=== PATIENT | female | born 1960 | race Caucasian/White ===

== ENCOUNTER 2017-04-19 08:15 | Inpatient (IN) | payer OTHER ==
[2017-04-19] VITALS (10 sets, daily range): BP systolic 106–137; BP diastolic 40–98; PULSE 61–77; TEMP 98–98.1
[~2017-04-19] VITALS: Ht 170.2 cm; Wt 122.0 kg
[2017-04-19 09:08] LABS: HEMATOCRIT 37.2 % (37.0-47.0); HEMOGLOBIN 12.2 g/dl (12.5-16.0); MEAN CELL VOLUME 88 fl (80.0-100.0); MEAN CORPUSCULAR HEMOGLOBIN 29 pg (27.0-31.0); MEAN CORPUSCULAR HGB CONC 33 g/dl (33.0-37.0); MEAN PLATELET VOLUME 9.4 fl (7.4-10.4); PLATELET COUNT 268 K/mm3 (130-400); RED BLOOD COUNT 4.25 M/mm3 (4.10-5.30); REDCELL DISTRIBUTION WIDTH-CV 12.7 % (11.5-14.5); WHITE BLOOD COUNT 8.5 K/mm3 (4.8-10.8)
[2017-04-19 09:19] LABS: ADD PATHOLOGY DIFF REVIEW NO
[2017-04-19] MEDS ORDERED: NORCO 325 MG-51 TAB PO (09:26)
[2017-04-19 09:35] LABS: CALCIUM 9.1 mg/dL (8.4-10.2); CREATININE, serum 0.84 mg/dL (0.52-1.25); POTASSIUM 3.8 mmol/L (3.4-5.0); URIC ACID 7.2 mg/dL (2.5-6.2)
[2017-04-19 09:45] LABS: ERYTHROCYTE SEDIMENTATION RATE 47 mm/hr (0-30)
[2017-04-19 10:19] LABS: BAND 48 % (0-10); METAMYELOCYTE 1 % (0-0); MYELOCYTE 1 % (0-0); NEUTROPHILS 21 % (42.0-75.2); TOTAL CELLS COUNTED 100
[2017-04-19 10:20] LABS: PLATELET ESTIMATE NORMAL (NORMAL)
[2017-04-19 10:42] LABS: C-REACTIVE PROTEIN 24.1 mg/dL (0.0-0.9)
[2017-04-19 16:04] LABS: SYNOVIAL FL. POLYMORPHONUCLEAR 86.5 % (0-25); SYNOVIAL FLUID APPEARANCE CLOUDY; SYNOVIAL FLUID COLOR PINK; SYNOVIAL FLUID WBC 96873 /mm3 (200-600)
[2017-04-19 16:05] LABS: SYNOVIAL FL. MONONUCLEAR 13.5 % (0-75)
[2017-04-19 17:41] LABS: PH 5 (5-8); URINE APPEARANCE Hazy; URINE BACTERIA None Seen /hpf; URINE BILIRUBIN Negative (NEGATIVE); URINE BLOOD Negative (NEGATIVE); URINE COLOR Amber; URINE GLUCOSE Negative (NEGATIVE); URINE KETONE Trace (NEGATIVE); URINE UROBILINOGEN Negative (NEGATIVE)
[2017-04-20] VITALS (7 sets, daily range): BP systolic 97–147; BP diastolic 43–73; PULSE 62–80; TEMP 98.2–98.9
[2017-04-20 05:23] LABS: HEMATOCRIT 34.3 % (37.0-47.0); HEMOGLOBIN 11.2 g/dl (12.5-16.0)
[2017-04-20 10:20] LABS: SYN APPEARANCE Cloudy (()); SYN COLOR Amber (())
[2017-04-20 10:28] LABS: BASO % 0.3 % (0.0-2.0); GRAN # 10.6 (1.4-6.5); GRAN % 80.9 % (42.2-75.2); LYMPH # 1.8 (1.2-3.4); LYMPH % 13.4 % (20.0-51.0); MEAN CELL VOLUME 87 fl (80.0-100.0); MEAN CORPUSCULAR HGB CONC 33 g/dl (33.0-37.0); MEAN PLATELET VOLUME 9.8 fl (7.4-10.4); MONO # 0.6 (0.1-0.6); MONO % 4.7 % (1.7-9.3); PLATELET COUNT 323 K/mm3 (130-400); RED BLOOD COUNT 4.17 M/mm3 (4.10-5.30); REDCELL DISTRIBUTION WIDTH-CV 12.8 % (11.5-14.5); WHITE BLOOD COUNT 13.1 K/mm3 (4.8-10.8)
[2017-04-20 10:29] LABS: HEMATOCRIT 36.3 % (37.0-47.0); HEMOGLOBIN 11.9 g/dl (12.5-16.0); MEAN CORPUSCULAR HEMOGLOBIN 29 pg (27.0-31.0)
[2017-04-20 10:38] LABS: CALCIUM 8.9 mg/dL (8.4-10.2); CREATININE, serum 0.81 mg/dL (0.52-1.25); POTASSIUM 3.9 mmol/L (3.4-5.0)
[2017-04-21 05:27] VITALS: BP 115/53; PULSE 70; TEMP 97.4
[2017-04-21 09:01] VITALS: BP 135/62; PULSE 69; TEMP 98.3
[2017-04-21 09:50] LABS: MEAN CELL VOLUME 88 fl (80.0-100.0); MEAN CORPUSCULAR HGB CONC 33 g/dl (33.0-37.0); MEAN PLATELET VOLUME 9.8 fl (7.4-10.4); PLATELET COUNT 321 K/mm3 (130-400); RED BLOOD COUNT 3.89 M/mm3 (4.10-5.30); REDCELL DISTRIBUTION WIDTH-CV 12.9 % (11.5-14.5); WHITE BLOOD COUNT 10.1 K/mm3 (4.8-10.8)
[2017-04-21 09:54] LABS: HEMATOCRIT 34.2 % (37.0-47.0); HEMOGLOBIN 11.1 g/dl (12.5-16.0); MEAN CORPUSCULAR HEMOGLOBIN 29 pg (27.0-31.0)
[2017-04-21 10:22] LABS: ERYTHROCYTE SEDIMENTATION RATE 71 mm/hr (0-30)
[2017-04-21 14:16] VITALS: BP 142/53; PULSE 81; TEMP 98
[2017-04-21 17:37] VITALS: BP 125/47; PULSE 72; TEMP 98
[2017-04-21 21:10] VITALS: BP 124/56; PULSE 77; TEMP 98.7
[2017-04-22 05:42] VITALS: BP 131/74; PULSE 74; TEMP 98.2
[2017-04-22 10:17] VITALS: BP 116/57; PULSE 74; TEMP 98.9
[2017-04-22 11:53] LABS: SYPHILIS AB IGG Negative (Negative)
[2017-04-22 13:25] VITALS: BP 136/78; PULSE 75; TEMP 98.7
[2017-04-22 22:00] VITALS: BP 150/63; PULSE 78; TEMP 99.1
[2017-04-23 05:08] VITALS: BP 159/72; PULSE 66; TEMP 99.2
[2017-04-23 10:07] VITALS: BP 152/67; PULSE 72; TEMP 98.2
[2017-04-23 13:43] VITALS: BP 153/78; PULSE 72; TEMP 98.3
[2017-04-23 16:08] VITALS: BP 147/69; PULSE 70; TEMP 98.6
[2017-04-23 21:53] VITALS: BP 147/58; PULSE 74; TEMP 98.8
[2017-04-24 06:19] VITALS: BP 152/65; PULSE 67; TEMP 98.1
[2017-04-24 10:30] VITALS: BP 132/54; PULSE 68; TEMP 98.4
[2017-04-24 13:09] VITALS: BP 124/54; PULSE 67; TEMP 98.3
[2017-04-24 16:11] VITALS: BP 124/65; PULSE 66; TEMP 98.3
[2017-04-24 22:33] VITALS: BP 138/64; PULSE 66; TEMP 98.5
[2017-04-25 06:13] VITALS: BP 137/69; PULSE 81; TEMP 98.4
[2017-04-25 07:12] LABS: ADD PATHOLOGY DIFF REVIEW NO
[2017-04-25 07:19] LABS: MEAN CELL VOLUME 90 fl (80.0-100.0); MEAN CORPUSCULAR HGB CONC 32 g/dl (33.0-37.0); MEAN PLATELET VOLUME 9.4 fl (7.4-10.4); PLATELET COUNT 342 K/mm3 (130-400); RED BLOOD COUNT 3.59 M/mm3 (4.10-5.30); REDCELL DISTRIBUTION WIDTH-CV 12.7 % (11.5-14.5); WHITE BLOOD COUNT 9.8 K/mm3 (4.8-10.8)
[2017-04-25 07:27] LABS: HEMATOCRIT 32.4 % (37.0-47.0); HEMOGLOBIN 10.2 g/dl (12.5-16.0); MEAN CORPUSCULAR HEMOGLOBIN 28 pg (27.0-31.0)
[2017-04-25 08:09] LABS: BAND 8 % (0-10); BASOPHIL 1 % (0-2); NEUTROPHILS 68 % (42.0-75.2); PLATELET ESTIMATE NORMAL (NORMAL); TOTAL CELLS COUNTED 100
[2017-04-25 09:04] VITALS: BP 141/60; PULSE 65; TEMP 97.5
[2017-04-25] MEDS ORDERED: ROCEPHIN 2GM VIAL21 IV (09:12)
[2017-04-25] MEDS ORDERED: HEPARIN LOCK FLU5 M1 IV (09:14)
[2017-04-25] MEDS ORDERED: SYNTHROID0.05 MG/TA PO (09:17)
[2017-04-25] MEDS ORDERED: NS INT FLUSH 1010 ML IV (10:08)
[2017-04-25] MEDS ORDERED: NORCO 325 MG-7.1 TAB PO (10:08)
[2017-04-25 13:32] VITALS: BP 137/47; PULSE 69; TEMP 98.1
[2017-04-25] MEDS ORDERED: DOXYCYCLINE 10100 MG PO (14:45)
[2017-04-25 18:15] VITALS: BP 158/64; PULSE 88; TEMP 98.4
== END 2017-04-25 20:44 | disposition home or self-care (01) | DRG 501 ==
LOC: COL.ER 08:15 → SURG 15:10
PROVIDERS: Internal Medicine Cardiovascular Disease; Internal Medicine Infectious Disease; Nurse Practitioner; Orthopaedic Surgery; Physician Assistant
PROC: 0S9C3ZX Drainage of Right Knee Joint, Percutaneous Approach, Diagnostic (ICD-10-PCS; 2017-04-19)
PROC: 0MDN4ZZ Extraction of Right Knee Bursa and Ligament, Percutaneous Endoscopic Approach (ICD-10-PCS; principal; 2017-04-19 18:30)
DX: M00.9 Pyogenic arthritis, unspecified (principal); Z68.41 Body mass index [BMI] 40.0-44.9, adult; E66.01 Morbid (severe) obesity due to excess calories; Z85.3 Personal history of malignant neoplasm of breast; M25.461 Effusion, right knee; I34.0 Nonrheumatic mitral (valve) insufficiency; M65.9 Synovitis and tenosynovitis, unspecified
CPT/HCPCS: 86780; 99223-AI; 99231-AI; 99233-AI; A9284; C1751; C1894; J0171; J0690; J0696; J1170; J1644; J1650; J1885; J2405; J2704; J2765; J3010; J3370; J7030; J7040; J7042; J7050

== ENCOUNTER → 2017-05-02 | Outpatient (REF) ==
[~2017-05-02] MED LIST: DOXYCYCLINE 10100 MG PO; HEPARIN LOCK FLU5 M1 IV; NORCO 325 MG-51 TAB PO; NORCO 325 MG-7.1 TAB PO; NS INT FLUSH 1010 ML IV; ROCEPHIN 2GM VIAL21 IV; SYNTHROID0.05 MG/TA PO
== END ==
LOC: ZAIV 04-28 06:00
DX: Z02.89 Encounter for other administrative examinations (principal)

== ENCOUNTER → 2017-05-06 | Outpatient (REF) | LOC: ZLAB.WCH 18:07 | DX: Z01.89 Encounter for other specified special examinations (principal) ==

== ENCOUNTER → 2017-05-12 | Outpatient (REF) | LOC: ZLAB.WCH 14:30 | DX: Z01.89 Encounter for other specified special examinations (principal) ==

== ENCOUNTER → 2017-05-19 | Outpatient (REF) | LOC: ZLAB.WCH 18:30 | DX: Z01.89 Encounter for other specified special examinations (principal) ==

== ENCOUNTER 2017-07-18 12:30 | Outpatient (RCR) | payer OTHER | END 2017-07-19 15:22 | disposition home or self-care (01) | LOC: MKS.ESL.PT 12:30 | DX: M23.306 Other meniscus derangements, unspecified meniscus, right knee (principal) ==

== ENCOUNTER → 2018-10-09 | Outpatient (CLI) | payer OTHER | LOC: COL.VAS 12:15 | DX: Z51.11 Encounter for antineoplastic chemotherapy (principal); C50.212 Malignant neoplasm of upper-inner quadrant of left female breast; I51.7 Cardiomegaly; I34.0 Nonrheumatic mitral (valve) insufficiency ==

== ENCOUNTER 2019-04-04 08:05 | Outpatient (RCR) | payer OTHER | END 2019-07-03 | disposition still patient (30) | LOC: MKS.ESL.PT | DX: C50.212 Malignant neoplasm of upper-inner quadrant of left female breast (principal) ==

== ENCOUNTER → 2020-03-21 | Outpatient (CLI) | payer OTHER | LOC: COL.RAD 08:15 | DX: C50.212 Malignant neoplasm of upper-inner quadrant of left female breast (principal) ==